=== PATIENT | male | born 2000 | race Caucasian/White ===

== ENCOUNTER 2025-08-14 09:09 | Emergency (ER) | payer MEDICAID, SELFPAY ==
[2025-08-14 09:09] VITALS: BP 123/61; PULSE 69; RESP 17; TEMP 36.7; O2SAT 99; BMI 19.2
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
--- OUTSIDE RECORDS SUMMARY | 2025-08-14 09:18 | XMS_ITS | Clinical Summary ---
Author Organization [facility] Address [address] [address] Phone Care Team Providers Care Insurance Operations Rep Name Role Phone Unavailable Primary Care Provider Unavailabl e Allergies No known active allergies Medications multivitamin tablet Take 1 tablet by mouth 1 (one) time each day. 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/2025 Laceration of muscle and ten don of long flexor muscle of toe at ankle and foot level, left foot, subsequent encounter 10/10/2021 Overview (10/10/2021): Added automatically from request for surgery Cellulitis 10/10/2021 Overview (10/10/2021): Added automatically from request for surgery Left foot pain 10/10/2021 Overview (10/10/2021): Added automatically from request for surgery Encounters Date Type Department Care Team Description 06/29/2025 9:00 AM CDT [facility] [address] [place] [phone] Nando Cruz DPM Fibroma of foot, left (Primary Dx) 06/22/2025 1:45 PM CDT Office Visit [facility] [address] [place] [phone] Nando Cruz DPM Fibroma of foot, left (Primary Dx) 06/15/2025 9:15 AM CDT Office Visit [facility] [address] [place] [phone] Nando Cruz DPM Fibroma of foot, left (Primary Dx) 06/12/2025 7:30 AM CDT - 06/12/2025 8:10 AM CDT Surgery [facility] [address] [place] [phone] Nando Cruz DPM Removal of soft tissue mass/fibroma left foot [00840 (CPT )] 06/12/2025 7:28 AM CDT Anesthesia Event [facility] [address] [place] [id number] Johnathon Robertson, Leydi Ngo, DNAP, REGIONAL GUIDE 06/12/2025 6:00 AM CDT - 06/12/2025 8:55 AM CDT Hospital Encounter OPERATING ROOM-[address] [id number] Nando Cruz DPM Discharge Disposition: Discharged to Home or Self Care (Routine Discharge) 06/12/2025 Orders Only [facility] [address] [place] [phone] Nando Cruz DPM Fibroma of foot, left (Primary Dx); Left foot pain 06/10/2025 Telephone [facility] [address] [place] [phone] Nando Cruz DPM RP, surgical clearance letter 06/08/2025 Telephone [facility] [address] [place] [phone] Chelsea Chauhan, LUCINA 05/27/2025 9:15 AM CDT Office Visit [facility] [address] [place] [phone] Nando Cruz DPM Fibroma of foot, left (Primary Dx); Left foot pain 05/27/2025 Orders Only [facility] [address] [phone] Nando Curz, DPM Fibroma of foot, left (Primary Dx); Left foot pain from Last 3 Months Family History Medical History Relation Comments Heart attack Maternal Grandfather Hypertension Maternal Grandfather Cancer Maternal Grandmother Diabetes Maternal Grandmother Lung cancer Maternal Grandmother Uterine cancer Maternal Grandmother Heart murmur Mother Heart murmur Sister Malig Hyperthermia Neg Hx Pseudochol deficiency Neg Hx Stroke Neg Hx Relation Status Comments Maternal Grandfather Maternal Grandmother Mother Sister Social History Tobacco Use Types Packs/Day Years Used Date Smoking Tobacco: Some Days Smokeless Tobacco: Never Comments:vapes Alcohol Use Standard Drinks/Week Comments Yes 0 (1 standard drink = 0.6 oz pur e alcohol) rarely PHQ-2 Answer Date Recorded Patient Health Questionnaire-2 Score 0 06/15/2025 [facility] - Mental Health Answer Date Recorde d Little interest or pleasure in doing things Not at all 06/15/2025 Feeling down, depressed, or hopeless Not at all 06/15/2025 Feeling of Stress Not on file 06/15/2025 Sex and Gender Information Value Date Recorded Sex Assigned at Male 10/14/2021 11:41 AM [employer] Legal Sex Male 11:06 AM CDT Gender Identity Male 10/14/2021 11:41 AM [employer] Sexual Orientation Not on file Last Filed Vital Signs Vital Sign Reading Time Taken Comments Blood Pressure 102/68 06/29/2025 9:13 AM CDT Pulse 57 06/29/2025 9:13 AM CDT Temperature 37 C (98.6 F) 06/29/2025 9:13 AM CDT Respiratory Rate 18 06/29/2025 9:13 AM CDT Oxygen Saturation 98% 06/29/2025 9:13 AM CDT Inhaled Oxygen Concentration - - Weight 53.5 kg (118 lb) 06/29/2025 9:13 AM CDT Height 175.3 cm (5' 9 ) 06/29/2025 9:13 AM CDT Body Mass Index 17.43 06/29/2025 9:13 AM CDT Plan of Treatment Health Maintenance Due Date Last Done Comments Lipid Panel 2002 MMR Vaccines (1 of 1 - Standard series) 2003 Varicella Vaccines (1 of 2 - 13+ 2-dose series) 2015 HPV Vaccines (1 - Male 3-dos e series) 2017 DTaP,Tdap,and Td Vaccines (3 - Td or Tdap) 07/05/2017 01/05/2017, 12/04/2016, 11/03/2016 Meningococcal B Vaccine (1 o f 2 - Standard) 2018 Social Drivers of Health (SDoH) 2020 Hepatitis B Vaccines (1 of 3 - 19+ 3-dose series) 2021 Pneumococcal Vaccine: 50+ Years (1 of 2 - PCV) 2021 Pneumococcal Vaccine (1 of 2 - PCV) 2021 COVID-19 Vaccine (1 - 2023-2 5 season) 2025 Influenza Vaccine (#1) 2025 Depression Screening 06/16/2026 06/15/2025 Zoster Vaccines (1 of 2) 2052 017, 11/03/2016 RSV Vaccines (1 - 1-dose 75+ series) 2077 HIB Vaccines Aged Out No longer eligi ble based on patient's age to complete this topic Hepatitis A Vaccines Aged Out No long er eligible based on patient's age to complete this topic IPV Vaccines Aged Out No longer eligi ble based on patient's age to complete this topic Meningococcal Vaccine Aged Out No tamika eulalio eligible based on patient's age to complete this topic Rotavirus Vaccines Aged Out No longer eligible based on patient's age to complete this topic Procedures Procedure Name Priority Date/Time Associated Diagnosis Comments SD EXC TUMOR SOFT TISSUE FOOT/TOE SUBFASC <1.5CM 06/12/2025 7:28 AM CDT Fibroma of foot, left Left foot pain from Last 3 Months Insurance [employer]ICA[employer] Advance Directives For more information, please contact: [phone] (7:30 AM - 5PM [facility], 7 days a week) * Full Code (Latest Code Status on File) Date Activated Date Inactivated Comments 06/12/2025 6:36 AM 06/12/2025 11:08 AM * Full Code Date Activated Date Inactivated Comments 10/14/2021 11:20 AM 10/14/2021 6:52 PM
[2025-08-14] MEDS: morphine 4 mg/mL SDV 1 mL IVP (09:34)
[2025-08-14 09:54] VITALS: BP 126/61; PULSE 72; O2SAT 99
[2025-08-14 10:55] VITALS: BP 115/70; PULSE 60; O2SAT 98
== END 2025-08-14 11:05 | disposition home or self-care (01) ==
PROVIDERS: Emergency Provider Emergency Medicine
DX: S80.211A Abrasion, right knee, initial encounter (principal); S40.211A Abrasion of right shoulder, initial encounter; S60.312A Abrasion of left thumb, initial encounter; V20.09XA Other motorcycle driver injured in collision with pedestrian or animal in nontraffic accident, initial encounter
CPT/HCPCS: 71045; 72125; 72128; 73030; 73130; 73562; 96374; 99285; J2270